=== PATIENT | male | born 1950 | race Caucasian/White ===

== ENCOUNTER 2020-12-23 15:11 | Emergency (ER) | payer SELFPAY ==
[~2020-12-23] VITALS: Ht 162.6 cm; Wt 66.0 kg
[2020-12-23] MEDS ORDERED: SODIUM CHLORIDE 0.9% 1,000 ML IV ONE (17:00)
[2020-12-23 18:08] LABS: BASOPHILS % 0.6 % (0.0-2.0); EOSINOPHILS % 2.3 % (0.0-5.0); LYMPHOCYTES % 34.8 % (20.0-50.0); MEAN CORPUSCULAR HEMOGLOBIN 30.5 pg (28.0-32.0); MEAN CORPUSCULAR VOLUME 86.8 fL (80.0-94.0); MEAN PLATELET VOLUME 8.5 fl (7.4-10.4); MONOCYTES % 4.5 % (2.0-8.0); NEUTROPHILS % 57.8 % (40.0-76.0); PLATELET 311 x1000/uL (130-400); RED BLOOD CELL COUNT 3.92 mill/uL (4.7-6.1); RED CELL DISTRIBUTION WIDTH 13.1 % (11.6-14.6)
[2020-12-23 18:11] LABS: CHLORIDE 103 mEq/L (98-107)
[2020-12-23 18:17] LABS: BETA HYDROXYBUTYRATE 0.2 mMol/L (0.0-0.3)
[2020-12-23 18:45] LABS: CLARITY URINE CLEAR (CLEAR); COLOR URINE YELLOW (YELLOW); KETONES URINE NEGATIVE (NEGATIVE); LEUKOCYTE ESTERASE URINE NEGATIVE (NEGATIVE); NITRITE URINE NEGATIVE (NEGATIVE); OCCULT BLOOD URINE NEGATIVE (NEGATIVE); PH URINE 6.5 (4.5-8.0); PROTEIN URINE 2+ (NEGATIVE); SPECIFIC GRAVITY URINE 1.012 (1.005-1.030); UROBILINOGEN URINE 0.2 E.U./dL (0.2-1.0)
[2020-12-23] MEDS ORDERED: METF-416 PO (20:10)
[2020-12-23 20:32] VITALS: BP 168/89
== END 2020-12-23 20:35 | disposition home or self-care (01) ==
LOC: ER 15:11
DX: E11.65 Type 2 diabetes mellitus with hyperglycemia (principal); I10 Essential (primary) hypertension
CPT/HCPCS: 36415; 71045; 80053; 81003; 82010; 82962; 85025; 93005; 96360; 99285; J7030; Z7610

== ENCOUNTER 2022-09-12 09:42 | Emergency (ER) | payer MEDICAID ==
[~2022-09-12] VITALS: Ht 160 cm; Wt 61.0 kg
[~2022-09-12 09:42] MED LIST: ASPI-1406 MT; ATOR40TA70 MT; CARV12.545 MT; HYDR25TA MT; METF-416 PO; NITR0.4T49 SL; TERA2CAP4 MT
[2022-09-12 09:50] VITALS: BP 115/71
== END 2022-09-12 13:27 | disposition left against medical advice (07) ==
LOC: ER 09:42
DX: Z53.21 Procedure and treatment not carried out due to patient leaving prior to being seen by health care provider (principal); F03.90 Unspecified dementia, unspecified severity, without behavioral disturbance, psychotic disturbance, mood disturbance, and anxiety; E11.9 Type 2 diabetes mellitus without complications; I10 Essential (primary) hypertension